=== PATIENT | male | born 1985 | race Hispanic/Latino ===

== ENCOUNTER 2020-05-23 01:49 | Emergency (ER) | payer SELFPAY ==
[~2020-05-23] VITALS: Ht 165.1 cm; Wt 99.8 kg
[2020-05-23] MEDS ORDERED: IBUPROFEN 400 MG TAB ONE (02:15)
[2020-05-23] MEDS ORDERED: ACETAMINOPHEN 325 MG TAB ONE (02:15)
--- NOTE | 2020-05-23 02:24 | Emergency Department Note ---
History of Present Illnes History of Present Illness Chief Complaint: COVID PUI History of Present Illness This is a 34 year old male, with no significant past medical history, who presents with a 5 day history of progressively worsening dry, spasmodic cough, fever, and generalized headache. Pt was seen by his PCP on 05/19/20 and diagnosed with an ear infection, and received a "PCN shot and a steroid shot." Patient has had subjective fever and chills at home, and he had a temp of 104.3 on arrival to the ED this morning. Patient has not been taking any antipyretics at home, for some unclear reason. Patient has shortness of breath with coughing, but denies any chest pain or tightness. He also denies any nausea, vomiting, or diarrhea. Patient is a smoker, but states that he has not smoked since his symptoms started. 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 Patient denies any history of asthma. 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 Required: No Onset (how long ago): day(s) (5) Location: generalized Quality: fever, chills, cough Radiation: Reports non-radiation Onset quality: sudden Duration (how long): day(s) (5) Timing of current episode: constant Progression: worsening Context: Denies recent illness, Denies recent travel, Denies trauma/injury Relieving factors: none Exacerbating factors: none Associated symptoms: Reports cough, Reports fever/chills, Reports headaches, Reports malaise, Reports shortness of breath (with coughing;); Denies chest pain, Denies loss of appetite, Denies nausea/vomiting, Denies rash Treatments prior to arrival: none Risk factors: smoker, 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 Any updates have been documented here. Past Medical History Recent Fever: Yes Clinical Suspicion of Infectio: Yes New/Unexplained Change in Ment: No Past Medical History: None Past Surgical History: None Social History Smoking Cessation: Current every day smoker Counseling Performed: Yes Alcohol Use: None Any Illegal Drug Use: No TB Exposure/Symptoms: No Physically hurt or threatened: No Family History Family history of heart diseas: No Other Any Pre-Existing Lines (PICC,: No Is patient up to date on immun: No Review of Systems Review of Systems Constitutional: Reports chills, Reports fever, Reports malaise EENTM: Denies blurred vision, Denies double vision Cardiovascular: Denies chest pain, Denies syncope Respiratory: Reports cough, Reports pain with cough, Reports dyspnea (with coughing), Reports dyspnea on exertion Gastrointestinal: Reports abdominal pain; Denies nausea, Denies vomiting Genitourinary: Denies dysuria, Denies frequency Musculoskeletal: Reports back pain, Reports neck pain; Denies joint pain, Denies joint swelling Integumentary: Denies change in color, Denies poor turgor Neurological: Reports headache; Denies numbness, Denies tingling Psychological: Reports no symptoms Endocrine: Reports no symptoms Hematological/Lymphatic: Reports no symptoms Review of other systems: All other systems negative Physical Exam Related Data Allergies: Coded Allergies: No Known Allergies (Unverified , 05/23/20) Vital signs reviewed: Yes Physical Exam CONSTITUTIONAL Constitutional: Present well-developed, Present well-nourished HENT HENT: Present normocephalic, Present atraumatic, Present oropharynx clear/moist, Present nose normal HENT L/R: Present left ext ear normal, Present right ext ear normal EYES Eyes: Reports PERRL, Reports conjunctivae normal NECK Neck: Present ROM normal PULMONARY Pulmonary: Present effort normal (pt coughs with each ecxhlationl;), Present other (diminished BS at the bases; good air movement; frequent cough on in halation;); Absent respiratory distress, Absent chest tenderness CARDIOVASCULAR Cardiovascular: Present regular rhythm, Present heart sounds normal, Present capillary refill normal, Present normal rate GASTROINTESTINAL Abdominal: Present soft, Present nontender, Present bowel sounds normal GENITOURINARY Genitourinary: Present exam deferred SKIN Skin: Present warm, Present dry; Absent rash MUSCULOSKELETAL Musculoskeletal: Present ROM normal; Absent tenderness NEUROLOGICAL Neurological: Present alert, Present oriented x 3 PSYCHOLOGICAL Psychological: Present mood/affect normal Results Laboratory Laboratory CBC - nl, except for % lymph = 11.7; MetLac - nl except for gluc = 128, Cr = 0.5, Lactic is normal = 1.92; CMP - K = 3.3, CL = 95, AST= 45, ALT = 56; Lab results reviewed: Yes Imaging Imaging results reviewed: Yes Impressions [facility] [address] [address] Patient Name: JOSE CARLOS CHU MR #: [id number] : 1985 Age/Sex: 34/M Req #: [id number] Adm Physician: Ordered by: MARIS BRUNO MD Report #: [id number] [facility] Room/Bed: Procedure: [id number] HOPD/CXR 2 VIEW - HOPD Exam Date: 05/23/20 Exam Time: 0235 REPORT STATUS: Signed EXAMINATION: CXR 2 VIEW - HOPD INDICATION:cough, fever COMPARISON: FINDINGS: LUNGS: Peribronchial cuffing.r Patchy left base opacity, which is more apparent on the lateral view. PLEURA: No pleural effusion or pneumothorax. HEART AND MEDIASTINUM: The cardiomediastinal silhouette is unremarkable. BONES AND SOFT TISSUES: No acute osseous lesion. Soft tissues are unremarkable. UPPER ABDOMEN: No free air under the diaphragm. IMPRESSION: Patchy left basilar opacity concerning for early pneumonia. Signed by: Nestor Gonzalez MD on 05/23/2020 3:39 AM Dictated By: NESTOR GONZALEZ MD 8 Transcribed By: MARCELLA on 05/23/20338 COPY TO: MARIS BRUNO MD~ Assessment & Plan Medical Decision Making MDM - Patient is suspected of having Covid 19 pneumonia, without hypoxia. Covid test was performed, and is pending as it was unclear initially, whether or not patient would need to be admitted to the hospital. He has remained on room air with oxygen sats 96% - 97%, and the temp decreased to 99.2, with HR = 90's. Patient feels much better, following IV fluid, IV antibiotics, and IV Decadron. Patient was in no respiratory distress, and was stable for discharge for outpatient management. Reviewed all results with patient, and he was provided instruction on signs and symptoms avoiding should return to the emergency room. Patient was understanding of the plan. - It is very important that you drink plenty of fluids daily, especially when you have fever. Recommend water, Pedialyte, or G2 (low sugar) Gatorade. Recommend that you drink at least 8 bottles of water per day, and more if you're having fever over 100. - To treat your fever, recommend: - Ibuprofen 200 mg 3 tablets (600 mg) together every 6 hours, as needed for fever of 100.4 or greater. This may be alternated with: - Extra Strength Tylenol 500 mg - 2 tab together every 4 hours, as needed. If you have a fever of 100.4, or greater, it is VERY important, that you remain lightly clothed (shorts and T-shirt) and a sheet, to allow the heat to release from your body. DO NOT BUNDLE IN BLANKETS, WHEN YOU HAVE FEVER. - Recommend that you use the COMBIVENT INHALER with SPACER - 3-4 puffs every 4- 6 hours, for cough. You may decrease the frequency of use, as the cough subsides. - Return to the ED, if you develop persistent shortness of breath, chest pain, vomiting with inability to keep fluids and meds down, or persistent high fever. Assessment & Plan Final Impression: (1) Pneumonia (2) Suspected COVID-19 virus infection (3) Cough (4) Fever Depart Disposition: HOME, SELF-longterm Meds Active Scripts Ondansetron (ONDANSETRON ODT) 8 Mg Tab.rapdis, 4 MG PO Q6H PRN for nausea and vomiting, #20 TAB 0 Refills Prov:MARIS BRUNO MD 05/23/20 Cefdinir (OMNICEF) 300 Mg Capsule, 300 MG PO BID for pneumonia for 10 Days, #20 CAP 0 Refills - take with food. Prov:MARIS BRUNO MD 05/23/20 Dexamethasone (Decadron) 6 Mg Tablet, 1 TAB PO DAILY PRN for cough and wheezing for 10 Days, #10 TAB 0 Refills Take with food. Prov:MARIS BRUNO MD 05/23/20 Azithromycin (ZITHROMAX) 250 Mg Tablet, 2 TAB PO DAILY for pneumonia for 5 Days, #6 TAB 0 Refills 2 tabs po today, then 1 tab po daily x 4 days. Complete 5 day course. Prov:MARIS BRUNO MD 05/23/20 Medications in the ED Ibuprofen 800 mg STK-MED ONCE .ROUTE ; Start 05/23/20 at 02:15; Stop 05/23/20 at 02:09; Status DC Acetaminophen 975 mg STK-MED ONCE .ROUTE ; Start 05/23/20 at 02:15; Stop 05/23/20 at 02:09; Status DC MARIS BRUNO MD May 23, 2020 02:24
[2020-05-23] MEDS ORDERED: DEXAMETHASONE SOD PHOS INJ 4 MG/ML VIAL IV ONE (02:30)
[2020-05-23] MEDS ORDERED: SODIUM CHLORIDE 0.9% 1000ML 1,000 ML IV SCH (02:30)
[2020-05-23] MEDS ORDERED: AZITHROMYCIN 500MG/NS 250 ML 250 ML IV ONE (02:45)
[2020-05-23] MEDS ORDERED: CEFTRIAXONE SOD 1 GM/NS 50 ML 50 ML IV ONE (02:45)
[2020-05-23] MEDS ORDERED: SODIUM CHLORIDE 0.9% 1000ML 1,000 ML ONE (02:53)
[2020-05-23] MEDS ORDERED: CEFTRIAXONE SOD 1 GM VIAL ONE (02:54)
[2020-05-23] MEDS ORDERED: AZITHROMYCIN 500MG/NS 250 ML 250 ML ONE (02:54)
[2020-05-23] MEDS ORDERED: DEXAMETHASONE SOD PHOS INJ 4 MG/ML VIAL ONE (02:58)
--- NOTE | 2020-05-23 03:42 | Diagnostic Imaging Report ---
EXAMINATION: CXR 2 VIEW - HOPD INDICATION:cough, fever COMPARISON: FINDINGS: LUNGS: Peribronchial cuffing.r Patchy left base opacity, which is more apparent on the lateral view. PLEURA: No pleural effusion or pneumothorax. HEART AND MEDIASTINUM: The cardiomediastinal silhouette is unremarkable. BONES AND SOFT TISSUES: No acute osseous lesion. Soft tissues are unremarkable. UPPER ABDOMEN: No free air under the diaphragm. IMPRESSION: Patchy left basilar opacity concerning for early pneumonia. Signed by: Silvano Cates MD on 05/23/2020 3:39 AM
[2020-05-23] MEDS ORDERED: ONDANSETRON HCL INJ 2MG/ML 2ML 2 MG/ML VIAL IV STA (04:08)
[2020-05-23] MEDS ORDERED: ZITHROMAX250 MG PO (04:17)
[2020-05-23] MEDS ORDERED: DECADRON6 MG PO (04:20)
[2020-05-23] MEDS ORDERED: CEFDINIR300 MG PO (04:24)
[2020-05-23 04:37] VITALS: BP 123/67
[2020-05-23] MEDS ORDERED: ONDANSETRON ODT8 MG PO (04:42)
[2020-05-23] MEDS ORDERED: IBUPROFEN 400 MG TAB PO ONE (05:00)
[2020-05-23] MEDS ORDERED: ACETAMINOPHEN 325 MG TAB PO ONE (05:00)
[2020-05-23] MEDS ORDERED: IPRATROPIUM/ALBUTEROL SULFATE 4 GM INH INH SCH (07:00)
== END 2020-05-23 05:05 | disposition home or self-care (01) ==
LOC: FSED 02:18
DX: U07.1 COVID-19 (principal); R50.9 Fever, unspecified; J18.9 Pneumonia, unspecified organism; R05 Cough; F17.210 Nicotine dependence, cigarettes, uncomplicated
CPT/HCPCS: 71046; 80053; 85025; 87040; 96374; 96376; 99284; J0456; J0696; J1100; J2405; J7030; U0002